=== PATIENT | male | born 1950 | race Caucasian/White ===

== ENCOUNTER 2016-12-16 14:15 | Inpatient (IN) | payer OTHER ==
[2016-12-16] VITALS (8 sets, daily range): BP systolic 103–139; BP diastolic 50–68
[~2016-12-16] VITALS: Ht 180.3 cm; Wt 150.1 kg
--- NOTE | 2016-12-16 14:54 | Emergency Room Report ---
History of Present Illness General Chief Complaint: Hypertension Source: Patient Present Illness HPI Patient is a 66-year-old male presented after increased difficulty breathing. Patient reported having hypotension at home. Patient is reportedly a type II diabetic. He stated that he took some glucose pills to raise his blood pressure. Patient prior history of heart failure and had been intermittently taking diuretics. Allergies: Coded Allergies: No Known Allergies (Unverified , 12/16/16) Patient History Past Medical History: old chart reviewed Reviewed Nursing Documentation: PMH: Agreed, PSxH: Agreed Nursing Documentation-PMH Past Medical History: No History, Except For Hx Cardiac Problems: Yes Hx Hypertension: Yes Hx Pacemaker: Yes Hx Diabetes: Yes Hx Cerebrovascular Accident: Yes Review of Systems All Other Systems: negative except mentioned in HPI Physical Exam Vital Signs Date Time Temp Pulse Resp B/P Pulse Ox O2 Delivery O2 Flow Rate FiO2 12/16/16 14:26 98.8 78 12 115/57 99 Room Air Sp02 EP Interpretation: reviewed, normal General Appearance: normal inspection, alert Head: atraumatic ENT: normal ENT inspection, hearing grossly normal, normal voice Neck: normal inspection, full range of motion, supple, no bony tend Respiratory: normal inspection, lungs clear, normal breath sounds, no respiratory distress, no retraction, no wheezing Cardiovascular #1: regular rate, rhythm, no edema Gastrointestinal: normal inspection, normal bowel sounds, non tender, soft, no guarding, no hernia Genitourinary: no CVA tenderness Musculoskeletal: normal inspection, back normal, normal range of motion Neurologic: normal inspection, alert, oriented x3, responsive, implementation coordinator III-XII nml as tested, speech normal Psychiatric: normal inspection, judgement/insight normal, mood/affect normal Skin: normal inspection, normal color, no rash Medical Decision Making Diagnostic Impression: Primary Impression: CHF (congestive heart failure) Additional Impressions: Urinary tract infection Acute renal insufficiency ER Course The patient is a 66-year-old male who presented after having increased generalized weakness. Differential diagnosis included was not limited to anemia , urinary tract infection, electrolyte abnormality, hypothyroidism, myocardial infarction, myasthenia gravis, dehydration, among others. Because of complexity of patient's case laboratory testing and imaging studies were ordered. EKG interpreted by me showed biventricular pacemaker rhythm. The patient was noted to have fever. This is likely due to patient's a urinary tract infection. Patient also was noted to have some acute renal insufficiency. The patient was discussed with Dr. Justen Singh for inpatient management due to the patient's recent hypotension febrile illness Labs Test 12/16/16 14:40 12/16/16 15:35 12/16/16 15:54 12/16/16 15:58 White Blood Count 9.4 K/UL (4.8-10.8) Red Blood Count 3.45 M/UL (4.70-6.10) Hemoglobin 10.8 G/DL (14.2-18.0) Hematocrit 33.0 % (42.0-52.0) Mean Corpuscular Volume 96 FL (80-99) Mean Corpuscular Hemoglobin 31.4 PG (27.0-31.0) Mean Corpuscular Hemoglobin Concent 32.9 G/DL (32.0-36.0) Red Cell Distribution Width 13.9 % (11.6-14.8) Platelet Count 145 K/UL (150-450) Mean Platelet Volume 8.6 FL (6.5-10.1) Neutrophils (%) (Auto) 80.2 % (45.0-75.0) Lymphocytes (%) (Auto) 7.1 % (20.0-45.0) Monocytes (%) (Auto) 10.2 % (1.0-10.0) Eosinophils (%) (Auto) 0.2 % (0.0-3.0) Basophils (%) (Auto) 2.3 % (0.0-2.0) Sodium Level 133 mEQ/L (135-145) Potassium Level 3.4 mEQ/L (3.4-4.9) Chloride Level 89 mEQ/L (98-107) Carbon Dioxide Level 26 mEQ/L (20-30) Anion Gap 18 (5-15) Blood Urea Nitrogen 70 mg/dL (7-23) Creatinine 2.5 mg/dL (0.7-1.2) Estimat Glomerular Filtration Rate 25.9 mL/min (>60) Glucose Level 142 mg/dL (74-106) Calcium Level 8.8 mg/dL (8.6-10.2) Total Bilirubin 1.0 mg/dL (0.0-1.2) Aspartate Amino Transf (AST/SGOT) 21 U/L (5-40) Alanine Aminotransferase (ALT/SGPT) 12 U/L (3-41) Alkaline Phosphatase 56 U/L (40-129) Total Creatine Kinase 420 U/L (38-174) Creatine Kinase MB 1.8 ng/mL (< 6.7) Creatine Kinase MB Relative Index 0.4 Pro-B-Type Natriuretic Peptide 6482 pg/mL (0-125) Total Protein 7.9 g/dL (6.6-8.7) Albumin 3.7 g/dL (3.5-5.2) Globulin 4.2 g/dL Albumin/Globulin Ratio 0.8 (1.0-2.7) Lipase 15 U/L (< 60) Lactic Acid Level 1.40 mmol/L (0.66-2.22) Urine Color Yellow Urine Appearance Slightly cloudy Urine pH 5 (4.5-8.0) Urine Specific [place] 1.010 (1.005-1.035) Urine Protein 1+ (NEGATIVE) Urine Glucose (UA) Negative (NEGATIVE) Urine Ketones Negative (NEGATIVE) Urine Occult Blood 1+ (NEGATIVE) Urine Nitrite Negative (NEGATIVE) Urine Bilirubin Negative (NEGATIVE) Urine Urobilinogen 1 MG/DL (0.0-1.0) Urine Leukocyte Esterase 3+ (NEGATIVE) Urine RBC 0-2 /HPF (0 - 0) Urine WBC Tntc /HPF (0 - 0) Urine Squamous Epithelial Cells None /LPF (NONE/OCC) Urine Bacteria Many /HPF (NONE) Prothrombin Time 16.9 SEC (9.30-11.50) Prothromb Time International Ratio 1.6 (0.9-1.1) Troponin I < 0.30 ng/mL (<=0.30) EKG Diagnostic Results Rate: normal Rhythm: other - paced rhythm Rhythm Strip Diag. Results EP Interpretation: yes Rhythm: NSR, no PVC's, no ectopy Last Vital Signs Date Time Temp Pulse Resp B/P Pulse Ox O2 Delivery O2 Flow Rate FiO2 12/16/16 14:47 75 22 125/50 97 Room Air 12/16/16 14:26 98.8 Status: unchanged Disposition: ADMITTED INPATIENT Condition: Serious Robert Dennis Dec 16, 2016 14:54
[2016-12-16 14:55] LABS: BASOPHILS % (AUTO) 2.3 % (0.0-2.0); EOSINOPHILS % (AUTO) 0.2 % (0.0-3.0); LYMPHOCYTES % (AUTO) 7.1 % (20.0-45.0); MEAN CORPUSCULAR HEMOGLOBIN 31.4 PG (27.0-31.0); MEAN CORPUSCULAR HGB CONC 32.9 G/DL (32.0-36.0); MEAN CORPUSCULAR VOLUME 96 FL (80-99); MEAN PLATELET VOLUME 8.6 FL (6.5-10.1); MONOCYTES % (AUTO) 10.2 % (1.0-10.0); NEUTROPHILS % (AUTO) 80.2 % (45.0-75.0); PLATELET COUNT 145 K/UL (150-450); RED BLOOD COUNT 3.45 M/UL (4.70-6.10); RED CELL DISTRIBUTION WIDTH 13.9 % (11.6-14.8); WHITE BLOOD COUNT 9.4 K/UL (4.8-10.8)
[2016-12-16 15:12] LABS: ALBUMIN/GLOBULIN RATIO 0.8 (1.0-2.7); CALCIUM 8.8 mg/dL (8.6-10.2); CREATININE 2.5 mg/dL (0.7-1.2); GLOMERULAR FILTRATION RATE 25.9 mL/min (>60); POTASSIUM 3.4 mEQ/L (3.4-4.9); TOTAL PROTEIN 7.9 g/dL (6.6-8.7); TROPONIN I < 0.30 ng/mL (<=0.30)
[2016-12-16 15:23] LABS: CKMB 1.8 ng/mL (< 6.7)
[2016-12-16] MEDS ORDERED: cefTRIAXone 1 GM in NS 55 ML IVPB ONE (16:45)
[2016-12-16] MEDS ORDERED: ALLOPURINOL100 M1 ORAL (17:17)
[2016-12-16] MEDS ORDERED: LOSARTAN POTASS25 MG ORAL (17:17)
[2016-12-16] MEDS ORDERED: CARVEDILOL25 MG ORAL (17:17)
[2016-12-16] MEDS ORDERED: CO Q-10100 M1 PO (17:17)
[2016-12-16] MEDS ORDERED: FUROSEMIDE20 M1 ORAL (17:17)
[2016-12-16 17:31] LABS: APPEARANCE,URINE SLIGHTLY CLOUDY; KETONES,URINE NEGATIVE (NEGATIVE); LEUKOCYTE ESTERASE ,URINE 3+ (NEGATIVE); NITRITE,URINE NEGATIVE (NEGATIVE); PH,URINE 5 (4.5-8.0); PROTEIN,URINE 1+ (NEGATIVE); UROBILINOGEN,URINE 1 MG/DL (0.0-1.0)
[2016-12-16 17:42] LABS: BACTERIA,URINE MANY /HPF; RBC,URINE 0-2 /HPF (0 - 0); WBC,URINE TNTC /HPF (0 - 0)
[2016-12-16] MEDS ORDERED: WARFARIN SODIUM5 MG ORAL ×2 (17:54)
[2016-12-16] MEDS ORDERED: COLCRYS0.6 M1 PO (17:56)
[2016-12-16] MEDS ORDERED: VITAMIN D400 INTLU ORAL (17:56)
[2016-12-16] MEDS ORDERED: OMEPRAZOLE40 M1 ORAL (17:56)
[2016-12-16] MEDS ORDERED: PRAVACHOL20 MG ORAL (17:58)
[2016-12-16] MEDS ORDERED: TORSEMIDE100 MG PO (17:58)
[2016-12-16] MEDS ORDERED: Milk of Magnesia 30ml Ud ORAL PRN (18:15)
[2016-12-16] MEDS ORDERED: Zolpidem 5mg tab ORAL PRN (18:15)
--- NOTE | 2016-12-16 18:29 | Cardiac Electrophysiology PN ---
Subjective Subjective [id number] HTN CHF BNP >5000 S/P Medtronic BIV ICD Atrial fib on Coreg and coumadin. Check INR ARF Bun 70/cr 2.5 NIDDM Obesity DW ER and Dr Singh Objective Last 24 Hour Vital Signs Date Time Temp Pulse Resp B/P Pulse Ox O2 Delivery O2 Flow Rate FiO2 12/16/16 18:04 99.2 72 13 108/57 98 Room Air 12/16/16 17:17 100.4 78 22 103/65 98 Room Air 12/16/16 17:11 100.4 12/16/16 16:00 100.4 75 22 123/54 100 Room Air 12/16/16 14:47 75 22 125/50 97 Room Air 12/16/16 14:46 75 20 12/16/16 14:26 98.8 78 12 115/57 99 Room Air LATHA DEY Dec 16, 2016 18:29
[2016-12-16 18:52] LABS: INR 1.6 (0.9-1.1); PROTHROMBIN TIME 16.9 SEC (9.30-11.50); TROPONIN I < 0.30 ng/mL (<=0.30)
[2016-12-16] MEDS ORDERED: Allopurinol 100mg Tab ORAL SCH (19:00)
[2016-12-16] MEDS ORDERED: Losartan 25mg tab ORAL SCH (19:00)
[2016-12-16] MEDS ORDERED: LANTUS SOL100 UNIT/1 SUBQ (19:39)
[2016-12-16] MEDS: Allopurinol 100mg Tab ORAL SCH (21:44)
[2016-12-16] MEDS: Carvedilol 25mg Tab ORAL SCH (21:45)
[2016-12-16] MEDS: Warfarin Sodium 5mg ORAL SCH (22:51)
--- NOTE | 2016-12-17 00:15 | Consultation ---
DATE OF CONSULTATION: 12/16/2016 CARDIOLOGY CONSULTATION REFERRING PHYSICIAN: Justen Singh M.D. REASON FOR CONSULTATION: Management of hypertension, congestive heart failure, atrial fibrillation as well as patient's defibrillator. HISTORY OF PRESENT ILLNESS: The patient is a 66-year-old gentleman with a history of hypertension, diabetes, and congestive heart failure, who also has a history of Medtronic biventricular defibrillator implantation. He had a recent generator change about a year ago in [place]. The patient came to the emergency room for his shortness of breath and difficulty breathing and reportedly have hypotension at home. The patient is a type 2 diabetic and took some glucose pills to raise his blood sugar. The patient also has been taking Coumadin for his atrial fibrillation. The patient was brought to the ER and was also found to have renal failure. Cardiology consultation was obtained for further evaluation and management. His BNP in the ER was more than 6000. PAST MEDICAL HISTORY: 1. Hypertension. 2. Diabetes. 3. Nonischemic cardiomyopathy and congestive heart failure. 4. History of Medtronic biventricular defibrillator implantation and defibrillator generator change. 5. History of cerebrovascular accident. FAMILY HISTORY: Noncontributory. SOCIAL HISTORY: He recently moved to [place] from [place]. He does not smoke or drink alcohol. REVIEW OF SYSTEMS: Review of systems was performed and was negative other than what was mentioned in the history of present illness. PHYSICAL EXAMINATION: VITAL SIGNS: Blood pressure 124/50, pulse is 75, respirations 20, and he is afebrile. HEAD AND NECK: Mild JVD. LUNGS: Decreased breath sounds. CARDIOVASCULAR: Regular S1 and S2 with no gallop or murmur. There is a defibrillator in the left subclavian. ABDOMEN: Soft. EXTREMITIES: There is 1+ pitting edema. LABORATORY AND DIAGNOSTIC DATA: His EKG showed atrial fibrillation, biventricularly paced with the bundle-branch block morphology in lead V1. His laboratory showed sodium 132, potassium 3.4, BUN of 70, creatinine 2.5, and glucose 142. His BNP is 6482. His lactic acid is 1.4. His CBC and INR is pending. ASSESSMENT AND PLAN: 1. Congestive heart failure with beta-natriuretic peptide of 6500. The patient also has renal failure and azotemic with BUN of 70 and creatinine of 2.5. Hold off on giving him Lasix until the patient is evaluated by Dr. Singh. Again, hold off on Aldactone as well for renal failure, risk of hyperkalemia, however, start the patient on Coreg 25 mg b.i.d. the patient is on at home. It is of note, the patient was also on losartan 25 mg daily and Lasix 20 mg daily. Add Demadex 50 mg daily. I will hold until the patient is evaluated by Dr. Singh. 2. Status post Medtronic biventricular defibrillator implantation. We will try to interrogate defibrillator for further evaluation. 3. Chronic atrial fibrillation. Rate is controlled on Coreg 25 mg b.i.d. and the patient is on Coumadin, we will check the INR. 4. Azotemia with BUN of 70 and creatinine of 2.5. Further evaluation with Dr. Amaya. The patient may need actually some intravenous fluids and hold on losartan and Lasix. 5. hyperlipidemia, on Pravachol. 6. Uncontrolled diabetes. Thank you very much Dr. Singh for allowing me to participate in the care of this patient. Please do not hesitate to contact me for any questions regarding my evaluation. Devin Ortega M.D. DR: RICARDO JOB#: [id number] CC:
[2016-12-17 07:07] LABS: INR 1.7 (0.9-1.1)
[2016-12-17 07:23] LABS: CALCIUM 8.4 mg/dL (8.6-10.2); CHOLESTEROL/HDL RATIO 2.9 (3.3-4.4); CREATININE 2.6 mg/dL (0.7-1.2); GLOMERULAR FILTRATION RATE 24.7 mL/min (>60); MAGNESIUM 2.6 mg/dL (1.7-2.5); POTASSIUM 3.3 mEQ/L (3.4-4.9)
[2016-12-17 07:28] LABS: TROPONIN I < 0.30 ng/mL (<=0.30)
[2016-12-17 07:40] LABS: THYROID STIMULATING HORMONE 1.48 uIU/mL (0.300-4.500)
[2016-12-17 08:31] VITALS: BP 104/62
[2016-12-17] MEDS: Carvedilol 25mg Tab ORAL SCH ×2 (09:00→21:00)
[2016-12-17] MEDS: Losartan 25mg tab ORAL SCH (09:00)
[2016-12-17] MEDS: Allopurinol 100mg Tab ORAL SCH (09:25)
--- NOTE | 2016-12-17 10:22 | Diagnostic Imaging Report ---
Indication: Shortness of breath Technique: XRAY CHEST 1 V Comparison: None Findings: Cardiac silhouette is prominent. There is a left chest pacemaker. Central pulmonary vascular congestion is noted. Degenerative changes of the spine are seen. Atherosclerotic changes are present. Impression: Cardiomegaly with central pulmonary vascular congestion.
--- NOTE | 2016-12-17 11:00 | History & Physical ---
History and Physical History & Physicial HP dictated # [id number] CHANDA MUNIZ Dec 17, 2016 11:00
[2016-12-17 11:41] VITALS: BP 102/59
[2016-12-17 15:39] VITALS: BP 119/63
[2016-12-17] MEDS: cefTRIAXone 1 GM in D5W 55 ML IVPB SCH (15:54)
[2016-12-17] MEDS: Warfarin Sodium 5mg ORAL SCH (18:09)
--- NOTE | 2016-12-17 18:23 | Cardiology Report ---
APPROVED REPORT EXAM: Two-dimensional and M-mode echocardiogram with Doppler and color Doppler. INDICATION Congestive Heart Failure M-Mode DIMENSIONS IVSd0.6 (0.7-1.1cm)Left Atrium (MM)5.2 (1.6-4.0cm) LVDd6.2 (3.5-5.6cm)Aortic Root3.1 (2.0-3.7cm) PWd0.9 (0.7-1.1cm)Aortic Cusp Exc.1.9 (1.5-2.0cm) LVDs4.2 (2.5-4.0cm) PWs1.2 cm Technically difficult study due to poor acoustic windows. Mild left ventricular enlargement. Global left ventricular hypokinesis. Thinning of the mid septal akinesis. Left ventricular ejection fraction estimated to be 30-35 %. No evidence of left ventricular hypertrophy. No evidence of pericardial fat or effusion. Severe bi-atrial enlargement by 2D. Focal aortic valve sclerosis with adequate cusp excursion Thickened mitral valve leaflets with normal excursion. Mitral annulus and aortic root calcification. Pulmonic valve not well visualized. Normal tricuspid valve structure. IVC is normal in size with physiological collapse. Probable pacemaker wire present in the right side chambers. A color flow and spectral Doppler study was performed and revealed: No aortic regurgitation. Mild mitral regurgitation. Left ventricular diastolic dysfunction grade 3. Trace tricuspid regurgitation. Tricuspid systolic velocities suggests peak right ventricular systolic pressure of 28 mmHg Pulmonic regurgitation present.
--- NOTE | 2016-12-17 20:30 | Consultation ---
DATE OF CONSULTATION: 12/17/2016 INFECTIOUS DISEASE CONSULT PRIMARY ATTENDING PHYSICIAN: Justen Singh M.D. REASON FOR CONSULTATION: UTI. HISTORY OF PRESENT ILLNESS: This is a 66-year-old male admitted yesterday because of shortness of breath. The patient was hypotensive at home, feels like blood sugar was low around 80s. The patient feels chills at home. In hospital, he has a low-grade fever of 100.4 degrees. PAST MEDICAL HISTORY: Significant for diabetes mellitus type 2 on insulin, congestive heart failure, morbid obesity, history of atrial fibrillation, status post defibrillator placement, and status post CVA. MEDICATIONS: Rocephin, Cozaar, potassium chloride, Coumadin, Lasix, carvedilol, ranitidine, pravastatin, allopurinol, magnesium hydroxide, and Ambien. ALLERGIES: No known drug allergies. SOCIAL HISTORY: Single. Alcohol, drug abuse, or smoking. Lives at home. REVIEW OF SYSTEMS: Fever in the hospital as mentioned. Chronic shortness of breath on exertion. He has urinary frequency, but he is not sure that is because of Lasix. The patient has decreased urine. PHYSICAL EXAMINATION: GENERAL APPEARANCE: No acute distress, seems to be obese. Awake, alert, and oriented x3. VITAL SIGNS: Temperature 97.2 degrees, pulse 71, and blood pressure 104/62. HEAD AND NECK: [place] conjunctivae. HEART: Normal rate with defibrillator on the left side. LUNGS: Clear. ABDOMEN: Soft and obese. EXTREMITIES: Have mild leg edema. LABORATORY DATA: WBC is 9.4, hemoglobin 10.8, hematocrit 33, and platelets 145,000. Sodium 136, potassium 2.3, chloride 98, bicarb 28, BUN 75, creatinine 2.6, glucose 151, and hemoglobin A1c 7. BNP is 6482. Chest x-ray showed cardiomegaly and some congestion. UA shows WBC too numerous to count, leukocyte esterase positive, nitrites negative. IMPRESSION: Urinary tract infection. The patient has low-grade fever. The patient has acute renal failure, diabetes mellitus type 2, congestive heart failure, chronic atrial fibrillation, and morbid obesity. RECOMMENDATION: We will continue with Rocephin. We will follow up the cultures. At the end of my exam, I thank Dr. Justen Singh, for involving me in the care of this patient. Graeme Sinhg M.D. DR: PÉREZ JOB#: [id number] CC:
[2016-12-17] MEDS: NovoLOG Insulin Flexpen SUBQ SCH (22:08)
--- NOTE | 2016-12-17 22:30 | History and Physical Report ---
DATE OF ADMISSION: 12/16/2016 CHIEF COMPLAINT: Shakiness and some shortness of breath after having high blood pressure at sister's home. HISTORY OF PRESENT ILLNESS: This is a 66-year-old male with history of congestive heart failure. He is status post Medtronic biventricular defibrillator implantation. He was in his sister's house yesterday and he was feeling shaky. He checked his blood sugar which was in the 80s. He took some glucose tablets; however, even after his blood sugar came up, he was still feeling shaky and then he also became short of breath. He checked his blood pressure which was also high. He came to the emergency room. The patient was admitted. He was also found to have urinary tract infection. PAST MEDICAL HISTORY: Includes history of hypertension, diabetes, cardiomyopathy, and history of ICD. MEDICATIONS: Reviewed in the EMR. ALLERGIES: No known drug allergies. SOCIAL HISTORY: No history of smoking or alcohol abuse. The patient just moved to [place] from [place]. REVIEW OF SYSTEMS: As above. PHYSICAL EXAMINATION: GENERAL: The patient is a pleasant male, in no acute distress. VITAL SIGNS: Blood pressure 104/62, pulse 71, temperature 97.2 degrees, and respiratory rate 18. HEENT: [place] conjunctivae. Anicteric sclerae. NECK: Supple. LUNGS: Clear to auscultation. HEART: S1 and S2 without murmurs or rubs. ABDOMEN: Soft and nontender. EXTREMITIES: Bilateral pedal edema. LABORATORY FINDINGS: The UA shows 1+ protein and too numerous to count WBCs per high-powered field. CBC shows WBC of 9.4, hematocrit 33, hemoglobin 10.8, and platelets 145,000. Chemistry panel shows serum sodium 136, potassium 3.3, chloride 93, CO2 28, BUN 75, and creatinine 2.6. Magnesium 2.6. Troponin was negative. Hemoglobin A1c was 7. ASSESSMENT: This is a 66-year-old male, who is admitted with shakiness that appears to be as a result of hypoglycemia; however, even after his blood sugar came back to normal, he still felt the symptoms. He does have urinary tract infection. He has history of congestive heart failure, but he looks comfortable right now on room air. Nevertheless, he has also significant peripheral edema. PLAN: The patient will be on IV antibiotics. I started the patient on IV Lasix for diuresis. The patient will be followed by Dr. Ortega in cardiology consultation. Echocardiogram will be done. The patient's blood sugar will be followed and adjustment will be made in the patient's regimen. The patient has also renal failure with unknown baseline and likely the patient has some CKD as well. Renal ultrasound will be ordered to make sure that the patient does not have any obstruction. Justen Singh M.D. DR: KANDI JOB#: [id number] CC:
[2016-12-18] MEDS: NovoLOG Insulin Flexpen SUBQ SCH ×4 (06:20→21:52)
[2016-12-18 06:33] VITALS: BP 117/73
[2016-12-18 08:00] VITALS: BP 117/74
[2016-12-18 09:08] LABS: INR 1.7 (0.9-1.1)
[2016-12-18 09:18] LABS: CALCIUM 8.7 mg/dL (8.6-10.2); CREATININE 2.4 mg/dL (0.7-1.2); GLOMERULAR FILTRATION RATE 27.1 mL/min (>60); POTASSIUM 3.6 mEQ/L (3.4-4.9)
[2016-12-18] MEDS: Allopurinol 100mg Tab ORAL SCH (09:52)
[2016-12-18] MEDS: Carvedilol 25mg Tab ORAL SCH ×2 (09:52→21:49)
[2016-12-18] MEDS: Losartan 25mg tab ORAL SCH (09:52)
[2016-12-18] MEDS ORDERED: NS 275ml ONE (10:33)
[2016-12-18] MEDS ORDERED: Tubing IV Secondary IV ONE (10:33)
--- NOTE | 2016-12-18 11:59 | Infectious Diseases Prog Note ---
Assessment/Plan Assessment/Plan A; UTI Systolic CHF, EF=30-35% CKD, acute renal failure DM type 2 Morbid obesity P: continue Rocephin Will f/u cultures Subjective ROS Limited/Unobtainable: No Respiratory: Reports: no symptoms Cardiovascular: Reports: no symptoms Gastrointestinal/Abdominal: Reports: no symptoms Genitourinary: Reports: no symptoms Allergies: Coded Allergies: No Known Allergies (Unverified , 12/16/16) Objective Vital Signs Last 24 Hour Vital Signs Date Time Temp Pulse Resp B/P Pulse Ox O2 Delivery O2 Flow Rate FiO2 12/18/16 11:13 71 12/18/16 09:52 117/74 12/18/16 09:52 67 117/74 12/18/16 08:00 97.3 67 18 117/74 98 Room Air 12/18/16 06:33 97.0 73 20 117/73 99 Room Air 12/18/16 04:02 72 12/17/16 23:48 73 12/17/16 21:00 76 111/60 12/17/16 20:39 71 12/17/16 16:00 71 12/17/16 15:39 97.5 71 18 119/63 97 Room Air 12/17/16 12:00 80 Height (Feet): 5 Height (Inches): 11.00 Weight (Pounds): 300 General Appearance: no acute distress HEENT: mucous membranes moist Respiratory/Chest: normal breath sounds Cardiovascular: normal rate Abdomen: soft, non tender Extremities: other - edema Neurologic/Psychiatric: alert, oriented x 3, responsive Microbiology Date/Time Source Procedure Growth Status 12/16/16 15:45 Blood Blood Culture - Preliminary NO GROWTH AFTER 24 HOURS Resulted 12/16/16 15:35 Blood Blood Culture - Preliminary NO GROWTH AFTER 24 HOURS Resulted 12/16/16 15:54 Urine,Clean Catch Urine Culture - Preliminary Gram Negative Bacillus 1 Resulted Laboratory Tests Test 12/18/16 08:40 Prothrombin Time 18.0 SEC (9.30-11.50) H Prothromb Time International Ratio 1.7 (0.9-1.1) H Sodium Level 132 mEQ/L (135-145) L Potassium Level 3.6 mEQ/L (3.4-4.9) Chloride Level 93 mEQ/L (98-107) L Carbon Dioxide Level 27 mEQ/L (20-30) Anion Gap 12 (5-15) Blood Urea Nitrogen 75 mg/dL (7-23) H Creatinine 2.4 mg/dL (0.7-1.2) H Estimat Glomerular Filtration Rate 27.1 mL/min (>60) Glucose Level 206 mg/dL (74-106) H Calcium Level 8.7 mg/dL (8.6-10.2) Current Medications Medications (Trade) Dose Ordered Sig/Jordan Route PRN Reason Start Time Stop Time Status Last Admin Dose Admin Allopurinol 100 mg 100 mg DAILY ORAL 12/16/16 21:00 01/15/17 20:59 12/18/16 09:52 Carvedilol (Coreg) 25 mg EVERY 12 HOURS ORAL 12/16/16 21:00 01/15/17 20:59 12/18/16 09:52 Ceftriaxone Sodium/Dextrose (Rocephin/D5W) 55 ml @ 110 mls/hr Q24H IVPB 12/17/16 16:00 12/24/16 15:59 12/17/16 15:54 Dextrose (Dextrose 50%) STAT PRN IV Hypoglycemia 12/16/16 18:15 01/15/17 18:14 Furosemide (Lasix) 40 mg Q12HR IV 12/16/16 21:00 01/15/17 20:59 12/18/16 09:52 Insulin Aspart (NovoLOG) BEFORE MEALS AND HS SUBQ 12/17/16 22:30 01/16/17 22:29 12/18/16 06:20 Losartan Potassium (Cozaar) 25 mg DAILY ORAL 12/17/16 09:00 01/16/17 08:59 12/18/16 09:52 Magnesium Hydroxide (Mom) 30 ml HSPRN PRN ORAL Constipation 12/16/16 18:15 01/15/17 18:14 Pravastatin Sodium (Pravachol) 10 mg BEDTIME ORAL 12/16/16 21:00 01/15/17 20:59 12/17/16 21:39 Ranitidine HCl (Zantac) 150 mg Q12HR ORAL 12/16/16 21:00 01/15/17 20:59 12/18/16 09:53 Warfarin Sodium (Coumadin per pharmacy) 1 ea DAILY PRN MISC Per rx protocol 12/16/16 18:15 01/15/17 18:14 Warfarin Sodium (Coumadin) 5 mg COUMADIN ORAL 12/16/16 22:00 12/21/16 21:59 12/17/16 18:09 Zolpidem Tartrate (Ambien) 5 mg DAILYPRN PRN ORAL Insomnia 12/16/16 18:15 01/15/17 18:14 NINO MUNIZ Dec 18, 2016 11:59
--- NOTE | 2016-12-18 12:20 | General Progress Note ---
Assessment/Plan Problem List: (1) Urinary tract infection ICD Codes: N39.0 - Urinary tract infection, site not specified SNOMED: 41861435 (2) Acute renal insufficiency ICD Codes: N28.9 - Disorder of kidney and ureter, unspecified SNOMED: 103424903 (3) CHF (congestive heart failure) ICD Codes: I50.9 - Heart failure, unspecified SNOMED: 54875641 Assessment/Plan cont with diuretics laxatives check Echo follow labs Discussed with RN Subjective Allergies: Coded Allergies: No Known Allergies (Unverified , 12/16/16) Subjective C/O constipation Objective Last 24 Hour Vital Signs Date Time Temp Pulse Resp B/P Pulse Ox O2 Delivery O2 Flow Rate FiO2 12/18/16 11:13 71 12/18/16 09:52 117/74 12/18/16 09:52 67 117/74 12/18/16 08:00 97.3 67 18 117/74 98 Room Air 12/18/16 06:33 97.0 73 20 117/73 99 Room Air 12/18/16 04:02 72 12/17/16 23:48 73 12/17/16 21:00 76 111/60 12/17/16 20:39 71 12/17/16 16:00 71 12/17/16 15:39 97.5 71 18 119/63 97 Room Air Intake and Output 12/17/16 12/18/16 19:00 07:00 Intake Total 655 ml Output Total 750 ml 300 ml Balance -95 ml -300 ml Intake Oral 600 ml IV Total 55 ml Output Urine Total 750 ml 300 ml # Voids 1 3 Laboratory Tests 12/18/16 08:40: Prothrombin Time 18.0H, Prothromb Time International Ratio 1.7H, Sodium Level 132L, Potassium Level 3.6, Chloride Level 93L, Carbon Dioxide Level 27, Anion Gap 12, Blood Urea Nitrogen 75H, Creatinine 2.4H, Estimat Glomerular Filtration Rate 27.1, Glucose Level 206H, Calcium Level 8.7 Height (Feet): 5 Height (Inches): 11.00 Weight (Pounds): 300 Cardiovascular: normal rate Respiratory/Chest: lungs clear Edema: 2+ Generalized CHANDA MUNIZ Dec 18, 2016 12:20
[2016-12-18] MEDS ORDERED: Sorbitol Solution UD 30ml ORAL PRN (12:30)
[2016-12-18 13:14] VITALS: BP 110/70
--- NOTE | 2016-12-18 14:25 | Cardiac Electrophysiology PN ---
Assessment/Plan Status Narrative Technically difficult study due to poor acoustic windows. Mild left ventricular enlargement. Global left ventricular hypokinesis. Thinning of the mid septal akinesis. Left ventricular ejection fraction estimated to be 30-35 %. No evidence of left ventricular hypertrophy. No evidence of pericardial fat or effusion. Severe bi-atrial enlargement by 2D. Focal aortic valve sclerosis with adequate cusp excursion Thickened mitral valve leaflets with normal excursion. Mitral annulus and aortic root calcification. Pulmonic valve not well visualized. Normal tricuspid valve structure. IVC is normal in size with physiological collapse. Probable pacemaker wire present in the right side chambers. Assessment/Plan 1. Congestive heart failure with beta-natriuretic peptide of 6500 and EF 30%. Continue Coreg 25 mg b.i.d., losartan 25 and Lasix 40 iv bid. 2. Status post Medtronic biventricular defibrillator implantation. We will try to interrogate defibrillator for further evaluation. 3. Chronic atrial fibrillation. Rate is controlled on Coreg 25 mg b.i.d. and Coumadin per Rx INR is 1.7 4. Azotemia with BUN of 70 and creatinine of 2.5. Further evaluation with Dr. Amaya. 5. hyperlipidemia, on Pravachol. 6. Uncontrolled diabetes. DW RN Subjective Subjective Remained in atrial fib with controlled rate. Diuresing well. Objective Last 24 Hour Vital Signs Date Time Temp Pulse Resp B/P Pulse Ox O2 Delivery O2 Flow Rate FiO2 12/18/16 13:14 97.3 71 18 110/70 97 Room Air 12/18/16 12:00 85 12/18/16 11:13 71 12/18/16 09:52 117/74 12/18/16 09:52 67 117/74 12/18/16 08:00 97.3 67 18 117/74 98 Room Air 12/18/16 06:33 97.0 73 20 117/73 99 Room Air 12/18/16 04:02 72 12/17/16 23:48 73 12/17/16 21:00 76 111/60 12/17/16 20:39 71 12/17/16 16:00 71 12/17/16 15:39 97.5 71 18 119/63 97 Room Air Intake and Output 12/17/16 12/18/16 19:00 07:00 Intake Total 655 ml Output Total 750 ml 300 ml Balance -95 ml -300 ml Intake Oral 600 ml IV Total 55 ml Output Urine Total 750 ml 300 ml # Voids 1 3 Laboratory Tests Test 12/18/16 08:40 Prothrombin Time 18.0 SEC (9.30-11.50) H Prothromb Time International Ratio 1.7 (0.9-1.1) H Sodium Level 132 mEQ/L (135-145) L Potassium Level 3.6 mEQ/L (3.4-4.9) Chloride Level 93 mEQ/L (98-107) L Carbon Dioxide Level 27 mEQ/L (20-30) Anion Gap 12 (5-15) Blood Urea Nitrogen 75 mg/dL (7-23) H Creatinine 2.4 mg/dL (0.7-1.2) H Estimat Glomerular Filtration Rate 27.1 mL/min (>60) Glucose Level 206 mg/dL (74-106) H Calcium Level 8.7 mg/dL (8.6-10.2) Microbiology Date/Time Source Procedure Growth Status 12/16/16 15:45 Blood Blood Culture - Preliminary NO GROWTH AFTER 24 HOURS Resulted 12/16/16 15:35 Blood Blood Culture - Preliminary NO GROWTH AFTER 24 HOURS Resulted 12/16/16 15:54 Urine,Clean Catch Urine Culture - Preliminary Gram Negative Bacillus 1 Resulted Objective HEAD AND NECK: No JVD. LUNGS: Decreased breath sounds. CARDIOVASCULAR: Regular S1 and S2 with no gallop or murmur and defibrillator in the left subclavian. ABDOMEN: Soft. EXTREMITIES: There is 1+ pitting edema. LATHA DEY Dec 18, 2016 14:25
[2016-12-18 16:07] VITALS: BP 114/66
[2016-12-18] MEDS: Warfarin Sodium 5mg ORAL SCH (16:40)
[2016-12-18] MEDS: cefTRIAXone 1 GM in D5W 55 ML IVPB SCH (16:42)
[2016-12-18 18:23] LABS: TROPONIN I < 0.30 ng/mL (<=0.30)
[2016-12-18 20:00] VITALS: BP 122/62
[2016-12-19] VITALS: BP 109/68
[2016-12-19 04:28] VITALS: BP 98/60
[2016-12-19] MEDS: NovoLOG Insulin Flexpen SUBQ SCH ×4 (06:30→21:41)
[2016-12-19 08:16] LABS: INR 1.7 (0.9-1.1); PROTHROMBIN TIME 18.1 SEC (9.30-11.50)
[2016-12-19 08:29] VITALS: BP 103/67
[2016-12-19] MEDS: Carvedilol 25mg Tab ORAL SCH ×2 (09:00→21:50)
[2016-12-19] MEDS: Losartan 25mg tab ORAL SCH (09:00)
[2016-12-19] MEDS: Allopurinol 100mg Tab ORAL SCH (09:01)
[2016-12-19 12:00] VITALS: BP 109/70
--- NOTE | 2016-12-19 12:07 | Infectious Diseases Prog Note ---
Assessment/Plan Assessment/Plan antibiotics : ceftriaxone A 1. e.coli UTI 2. CHF 3. DM 4. renal failure improving P 1. continue ceftriaxone 2. will follow up cultures Subjective Constitutional: Denies: chills, fever Respiratory: Denies: dry cough, shortness of breath Gastrointestinal/Abdominal: Reports: constipation, Denies: diarrhea, nausea, vomiting Musculoskeletal: Denies: pain Allergies: Coded Allergies: No Known Allergies (Unverified , 12/16/16) Objective Vital Signs Last 24 Hour Vital Signs Date Time Temp Pulse Resp B/P Pulse Ox O2 Delivery O2 Flow Rate FiO2 12/19/16 12:00 97.7 70 18 109/70 99 Room Air 12/19/16 09:00 103/67 12/19/16 09:00 73 103/67 12/19/16 08:29 97.5 73 18 103/67 98 Room Air 12/19/16 04:28 97.3 71 20 98/60 97 Room Air 12/19/16 04:00 71 12/19/16 02:00 70 12/19/16 00:00 97.2 74 18 109/68 99 Room Air 12/18/16 21:49 75 114/66 12/18/16 20:00 87 12/18/16 20:00 97.0 75 18 122/62 98 Room Air 12/18/16 16:07 97.6 72 18 114/66 97 Room Air 12/18/16 16:00 71 12/18/16 13:14 97.3 71 18 110/70 97 Room Air Height (Feet): 5 Height (Inches): 11.00 Weight (Pounds): 300 Respiratory/Chest: lungs clear Cardiovascular: normal rate, regular rhythm, no gallop/murmur Abdomen: soft, non tender Extremities: other - + edema bilaterally Microbiology Date/Time Source Procedure Growth Status 12/16/16 15:45 Blood Blood Culture - Preliminary NO GROWTH AFTER 48 HOURS Resulted 12/16/16 15:35 Blood Blood Culture - Preliminary NO GROWTH AFTER 48 HOURS Resulted 12/16/16 15:54 Urine,Clean Catch Urine Culture - Final Escherichia Coli Complete Laboratory Tests Test 12/18/16 17:55 12/19/16 07:20 Troponin I < 0.30 ng/mL (<=0.30) Prothrombin Time 18.1 SEC (9.30-11.50) H Prothromb Time International Ratio 1.7 (0.9-1.1) H ROGER PEREZ Dec 19, 2016 12:07
--- NOTE | 2016-12-19 13:36 | Diagnostic Imaging Report ---
Indications: Acute renal failure Technique: Transabdominal real-time grayscale and duplex Doppler imaging of the kidneys, retroperitoneum, and urinary bladder was performed Findings: Comparison: None Right kidney measures 11.6 cm in length. Normal contour, echotexture, cortical thickness. No stones, other focal lesions, hydronephrosis, or obvious perinephric abnormalities. Left kidney measures 12 cm in length. Normal contour, echotexture, cortical thickness. No stones, other focal lesions, hydronephrosis, or obvious perinephric abnormalities. The intrahepatic portion of inferior vena cava is patent and normal caliber. The urinary bladder is distended without obvious abnormality. IMPRESSION: Negative retroperitoneal ultrasound--sonographically unremarkable kidneys
[2016-12-19] MEDS: cefTRIAXone 1 GM in D5W 55 ML IVPB SCH (15:25)
--- NOTE | 2016-12-19 15:27 | Cardiac Electrophysiology PN ---
Assessment/Plan Status Narrative Technically difficult study due to poor acoustic windows. Mild left ventricular enlargement. Global left ventricular hypokinesis. Thinning of the mid septal akinesis. Left ventricular ejection fraction estimated to be 30-35 %. No evidence of left ventricular hypertrophy. No evidence of pericardial fat or effusion. Severe bi-atrial enlargement by 2D. Focal aortic valve sclerosis with adequate cusp excursion Thickened mitral valve leaflets with normal excursion. Mitral annulus and aortic root calcification. Pulmonic valve not well visualized. Normal tricuspid valve structure. IVC is normal in size with physiological collapse. Probable pacemaker wire present in the right side chambers. Assessment/Plan 1. Congestive heart failure with beta-natriuretic peptide of 6500 and EF 30%. Continue Coreg 25 mg b.i.d., losartan 25 and change Lasix to 40 po daily 2. Status post Medtronic biventricular defibrillator implantation. Awaiting interrogation today. 3. Chronic atrial fibrillation. Rate is controlled on Coreg 25 mg b.i.d. and Coumadin per Rx INR today still is 1.7 4. Azotemia with BUN of 70 and creatinine of 2.5. Change IV lasix to po. Further evaluation with Dr. Amaya. 5. hyperlipidemia, on Pravachol. 6. Uncontrolled diabetes. COLTON RN and Dr Singh. Subjective Subjective Remained in atrial fib with controlled rate and occasional V pacing. No chest pain or SOB.. Objective Last 24 Hour Vital Signs Date Time Temp Pulse Resp B/P Pulse Ox O2 Delivery O2 Flow Rate FiO2 12/19/16 12:00 97.7 70 18 109/70 99 Room Air 12/19/16 12:00 70 12/19/16 09:00 103/67 12/19/16 09:00 73 103/67 12/19/16 08:29 97.5 73 18 103/67 98 Room Air 12/19/16 08:00 74 12/19/16 04:28 97.3 71 20 98/60 97 Room Air 12/19/16 04:00 71 12/19/16 02:00 70 12/19/16 00:00 97.2 74 18 109/68 99 Room Air 12/18/16 21:49 75 114/66 12/18/16 20:00 87 12/18/16 20:00 97.0 75 18 122/62 98 Room Air 12/18/16 16:07 97.6 72 18 114/66 97 Room Air 12/18/16 16:00 71 Intake and Output 12/18/16 12/19/16 19:00 07:00 Intake Total 180 ml Output Total 850 ml 1200 ml Balance -850 ml -1020 ml Intake Oral 180 ml Output Urine Total 850 ml 1200 ml # Voids 2 Laboratory Tests Test 12/18/16 17:55 12/19/16 07:20 Troponin I < 0.30 ng/mL (<=0.30) Prothrombin Time 18.1 SEC (9.30-11.50) H Prothromb Time International Ratio 1.7 (0.9-1.1) H Microbiology Date/Time Source Procedure Growth Status 12/16/16 15:45 Blood Blood Culture - Preliminary NO GROWTH AFTER 48 HOURS Resulted 12/16/16 15:35 Blood Blood Culture - Preliminary NO GROWTH AFTER 48 HOURS Resulted 12/16/16 15:54 Urine,Clean Catch Urine Culture - Final Escherichia Coli Complete Objective HEAD AND NECK: No JVD. LUNGS: Decreased breath sounds. CARDIOVASCULAR: Regular S1 and S2 with no gallop or murmur and defibrillator in the left subclavian. ABDOMEN: Soft. EXTREMITIES: 1+ pitting edema. LATHA DEY Dec 19, 2016 15:27
--- NOTE | 2016-12-19 15:56 | General Progress Note ---
Assessment/Plan Problem List: (1) Urinary tract infection ICD Codes: N39.0 - Urinary tract infection, site not specified SNOMED: 47678812 (2) Acute renal insufficiency ICD Codes: N28.9 - Disorder of kidney and ureter, unspecified SNOMED: 859932230 (3) CHF (congestive heart failure) ICD Codes: I50.9 - Heart failure, unspecified SNOMED: 44213306 Assessment/Plan change to po Lasix follow labs Discussed with Dr Ortega Subjective Allergies: Coded Allergies: No Known Allergies (Unverified , 12/16/16) Subjective feels better Objective Last 24 Hour Vital Signs Date Time Temp Pulse Resp B/P Pulse Ox O2 Delivery O2 Flow Rate FiO2 12/19/16 12:00 97.7 70 18 109/70 99 Room Air 12/19/16 12:00 70 12/19/16 09:00 103/67 12/19/16 09:00 73 103/67 12/19/16 08:29 97.5 73 18 103/67 98 Room Air 12/19/16 08:00 74 12/19/16 04:28 97.3 71 20 98/60 97 Room Air 12/19/16 04:00 71 12/19/16 02:00 70 12/19/16 00:00 97.2 74 18 109/68 99 Room Air 12/18/16 21:49 75 114/66 12/18/16 20:00 87 12/18/16 20:00 97.0 75 18 122/62 98 Room Air 12/18/16 16:07 97.6 72 18 114/66 97 Room Air 12/18/16 16:00 71 Intake and Output 12/18/16 12/19/16 19:00 07:00 Intake Total 180 ml Output Total 850 ml 1200 ml Balance -850 ml -1020 ml Intake Oral 180 ml Output Urine Total 850 ml 1200 ml # Voids 2 Laboratory Tests 12/18/16 17:55: Troponin I < 0.30 12/19/16 07:20: Prothrombin Time 18.1H, Prothromb Time International Ratio 1.7H Height (Feet): 5 Height (Inches): 11.00 Weight (Pounds): 300 Cardiovascular: normal rate Respiratory/Chest: lungs clear Edema: no edema noted CHANDA Pelaez Dec 19, 2016 15:56
[2016-12-19 16:06] VITALS: BP_SYST 109; BP_DIAS 1; BP_DIAS 71
[2016-12-19] MEDS ORDERED: Warfarin Sodium 7.5mg ORAL ONE (17:00)
[2016-12-19 20:00] VITALS: BP 107/61
[2016-12-20] VITALS: BP 117/74
[2016-12-20 04:00] VITALS: BP 113/79
[2016-12-20] MEDS: NovoLOG Insulin Flexpen SUBQ SCH ×4 (06:03→21:16)
[2016-12-20 07:56] LABS: INR 1.8 (0.9-1.1); PROTHROMBIN TIME 19.2 SEC (9.30-11.50)
[2016-12-20 08:55] VITALS: BP 107/73
[2016-12-20] MEDS: Carvedilol 25mg Tab ORAL SCH ×2 (09:42→21:13)
[2016-12-20] MEDS: Allopurinol 100mg Tab ORAL SCH (09:43)
[2016-12-20] MEDS: Losartan 25mg tab ORAL SCH (09:43)
[2016-12-20] MEDS: Furosemide 40mg tab ORAL SCH (09:44)
--- NOTE | 2016-12-20 10:45 | Infectious Diseases Prog Note ---
Assessment/Plan Assessment/Plan antibiotics : ceftriaxone A 1. e.coli UTI 2. CHF 3. DM 4. renal failure improving P 1. continue ceftriaxone 2. will follow up cultures Subjective Constitutional: Denies: chills, fever Respiratory: Reports: shortness of breath, Denies: dry cough Gastrointestinal/Abdominal: Denies: diarrhea, nausea, vomiting Musculoskeletal: Denies: pain Allergies: Coded Allergies: No Known Allergies (Unverified , 12/16/16) Objective Vital Signs Last 24 Hour Vital Signs Date Time Temp Pulse Resp B/P Pulse Ox O2 Delivery O2 Flow Rate FiO2 12/20/16 09:43 107/73 12/20/16 09:42 71 107/73 12/20/16 08:55 97.3 71 18 107/73 99 Room Air 12/20/16 07:45 73 12/20/16 04:00 97.2 73 20 113/79 97 Room Air 12/20/16 04:00 73 12/20/16 00:00 97.7 78 20 117/74 97 Room Air 12/20/16 00:00 77 12/19/16 21:50 72 107/69 12/19/16 20:00 72 12/19/16 20:00 97.7 71 20 107/61 96 Room Air 12/19/16 16:06 97.2 71 18 109/71 99 Room Air 12/19/16 16:00 73 12/19/16 12:00 97.7 70 18 109/70 99 Room Air 12/19/16 12:00 70 Height (Feet): 5 Height (Inches): 11.00 Weight (Pounds): 300 Respiratory/Chest: lungs clear Cardiovascular: normal rate, regular rhythm, no gallop/murmur Abdomen: soft, non tender Extremities: other - + edema Laboratory Tests Test 12/20/16 06:00 Prothrombin Time 19.2 SEC (9.30-11.50) H Prothromb Time International Ratio 1.8 (0.9-1.1) H ROGER PEREZ Dec 20, 2016 10:45
--- NOTE | 2016-12-20 11:36 | General Progress Note ---
Assessment/Plan Problem List: (1) Urinary tract infection ICD Codes: N39.0 - Urinary tract infection, site not specified SNOMED: 99904696 (2) Acute renal insufficiency ICD Codes: N28.9 - Disorder of kidney and ureter, unspecified SNOMED: 731265153 (3) CHF (congestive heart failure) ICD Codes: I50.9 - Heart failure, unspecified SNOMED: 90615728 Status Narrative UTI with E coli Assessment/Plan Increase lasix ? Lasix abxs DC tomorrow if ok with cardiology Subjective Allergies: Coded Allergies: No Known Allergies (Unverified , 12/16/16) Subjective feels better Objective Last 24 Hour Vital Signs Date Time Temp Pulse Resp B/P Pulse Ox O2 Delivery O2 Flow Rate FiO2 12/20/16 09:43 107/73 12/20/16 09:42 71 107/73 12/20/16 08:55 97.3 71 18 107/73 99 Room Air 12/20/16 07:45 73 12/20/16 04:00 97.2 73 20 113/79 97 Room Air 12/20/16 04:00 73 12/20/16 00:00 97.7 78 20 117/74 97 Room Air 12/20/16 00:00 77 12/19/16 21:50 72 107/69 12/19/16 20:00 72 12/19/16 20:00 97.7 71 20 107/61 96 Room Air 12/19/16 16:06 97.2 71 18 109/71 99 Room Air 12/19/16 16:00 73 12/19/16 12:00 97.7 70 18 109/70 99 Room Air 12/19/16 12:00 70 Intake and Output 12/19/16 12/20/16 19:00 07:00 Intake Total 1320 ml 300 ml Balance 1320 ml 300 ml Intake Oral 1320 ml 300 ml # Voids 5 Laboratory Tests 12/20/16 06:00: Prothrombin Time 19.2H, Prothromb Time International Ratio 1.8H Height (Feet): 5 Height (Inches): 11.00 Weight (Pounds): 300 Cardiovascular: normal rate Respiratory/Chest: lungs clear Edema: 2+ Generalized CHANDA MUNIZ Dec 20, 2016 11:36
[2016-12-20 11:47] VITALS: BP 121/75
--- NOTE | 2016-12-20 12:27 | Cardiac Electrophysiology PN ---
Assessment/Plan Status Narrative Technically difficult study due to poor acoustic windows. Mild left ventricular enlargement. Global left ventricular hypokinesis. Thinning of the mid septal akinesis. Left ventricular ejection fraction estimated to be 30-35 %. No evidence of left ventricular hypertrophy. No evidence of pericardial fat or effusion. Severe bi-atrial enlargement by 2D. Focal aortic valve sclerosis with adequate cusp excursion Thickened mitral valve leaflets with normal excursion. Mitral annulus and aortic root calcification. Pulmonic valve not well visualized. Normal tricuspid valve structure. IVC is normal in size with physiological collapse. Probable pacemaker wire present in the right side chambers. Assessment/Plan 1. Congestive heart failure with beta-natriuretic peptide of 6500 and EF 30%. Continue Coreg 25 mg b.i.d., losartan 25 and Lasix 40 po daily 2. Status post Medtronic biventricular defibrillator implantation. Nl F. High LV thresold by interrogation that was adjusted. 3. Chronic atrial fibrillation. Rate is controlled on Coreg 25 mg b.i.d. and Coumadin per Rx INR today is 1.8 4. Azotemia with BUN of 70 and creatinine of 2.5.On lasix po. Further evaluation with Dr. Amaya. 5. hyperlipidemia, on Pravachol. 6. Uncontrolled diabetes. COLTON RN and Dr Singh. OK to DC from cardiac standpoint. Subjective Subjective Atrial fib rate controlled. His BIV ICD was interrogated and showed high LV threshold and out put was adjusted. No chest pain or SOB.. Objective Last 24 Hour Vital Signs Date Time Temp Pulse Resp B/P Pulse Ox O2 Delivery O2 Flow Rate FiO2 12/20/16 11:47 97.7 70 18 121/75 100 Room Air 12/20/16 09:43 107/73 12/20/16 09:42 71 107/73 12/20/16 08:55 97.3 71 18 107/73 99 Room Air 12/20/16 07:45 73 12/20/16 04:00 97.2 73 20 113/79 97 Room Air 12/20/16 04:00 73 12/20/16 00:00 97.7 78 20 117/74 97 Room Air 12/20/16 00:00 77 12/19/16 21:50 72 107/69 12/19/16 20:00 72 12/19/16 20:00 97.7 71 20 107/61 96 Room Air 12/19/16 16:06 97.2 71 18 109/71 99 Room Air 12/19/16 16:00 73 Intake and Output 12/19/16 12/20/16 19:00 07:00 Intake Total 1320 ml 300 ml Balance 1320 ml 300 ml Intake Oral 1320 ml 300 ml # Voids 5 Laboratory Tests Test 12/20/16 06:00 Prothrombin Time 19.2 SEC (9.30-11.50) H Prothromb Time International Ratio 1.8 (0.9-1.1) H Objective HEAD AND NECK: No JVD. LUNGS: Decreased breath sounds. CARDIOVASCULAR: Regular S1 and S2 with no gallop or murmur and defibrillator in the left subclavian. ABDOMEN: Soft. EXTREMITIES: 1+ pitting edema. LATHA DEY Dec 20, 2016 12:27
[2016-12-20 16:12] VITALS: BP 104/68
[2016-12-20] MEDS: cefTRIAXone 1 GM in D5W 55 ML IVPB SCH (16:34)
[2016-12-20] MEDS ORDERED: Warfarin Sodium 7.5mg ORAL ONE (17:00)
[2016-12-20 20:00] VITALS: BP 108/89
[2016-12-21] VITALS: BP 112/65
[2016-12-21 04:00] VITALS: BP 107/71
[2016-12-21] MEDS: NovoLOG Insulin Flexpen SUBQ SCH ×2 (06:42→12:15)
[2016-12-21 06:43] LABS: INR 1.9 (0.9-1.1); PROTHROMBIN TIME 20.2 SEC (9.30-11.50)
[2016-12-21 08:00] VITALS: BP 113/77
[2016-12-21] MEDS: Losartan 25mg tab ORAL SCH (08:40)
[2016-12-21] MEDS: Furosemide 40mg tab ORAL SCH (08:40)
[2016-12-21] MEDS: Carvedilol 25mg Tab ORAL SCH (08:44)
[2016-12-21] MEDS: Allopurinol 100mg Tab ORAL SCH (08:49)
--- NOTE | 2016-12-21 10:14 | Infectious Diseases Prog Note ---
Assessment/Plan Assessment/Plan A; UTI Systolic CHF, EF=30-35% CKD, acute renal failure DM type 2 Morbid obesity P: continue Rocephin in hospital agree with discharge Subjective ROS Limited/Unobtainable: No Constitutional: Reports: no symptoms Respiratory: Reports: no symptoms Cardiovascular: Reports: dyspnea on exertion Gastrointestinal/Abdominal: Reports: no symptoms Allergies: Coded Allergies: No Known Allergies (Unverified , 12/16/16) Objective Vital Signs Last 24 Hour Vital Signs Date Time Temp Pulse Resp B/P Pulse Ox O2 Delivery O2 Flow Rate FiO2 12/21/16 08:44 71 113/77 12/21/16 08:40 113/77 12/21/16 08:00 97.5 71 19 113/77 98 Room Air 12/21/16 04:00 97.3 72 22 107/71 100 Room Air 12/21/16 04:00 111 12/21/16 00:00 72 12/21/16 00:00 97.6 88 20 112/65 98 Room Air 12/20/16 21:13 77 108/89 12/20/16 20:00 79 12/20/16 20:00 97.7 77 20 108/89 99 Room Air 12/20/16 16:25 70 12/20/16 16:12 97.2 75 18 104/68 98 Room Air 12/20/16 12:01 92 12/20/16 11:47 97.7 70 18 121/75 100 Room Air Height (Feet): 5 Height (Inches): 11.00 Weight (Pounds): 331 General Appearance: no acute distress HEENT: mucous membranes moist Respiratory/Chest: lungs clear Cardiovascular: normal rate Abdomen: soft, non tender Extremities: other - edema of legs Neurologic/Psychiatric: alert, oriented x 3, responsive Laboratory Tests Test 12/21/16 06:30 Prothrombin Time 20.2 SEC (9.30-11.50) H Prothromb Time International Ratio 1.9 (0.9-1.1) H Current Medications Medications (Trade) Dose Ordered Sig/Jordan Route PRN Reason Start Time Stop Time Status Last Admin Dose Admin Allopurinol 100 mg 100 mg DAILY ORAL 12/16/16 21:00 01/15/17 20:59 12/21/16 08:49 Carvedilol (Coreg) 25 mg EVERY 12 HOURS ORAL 12/16/16 21:00 7/17/17 20:59 12/21/16 08:44 Ceftriaxone Sodium/Dextrose (Rocephin/D5W) 55 ml @ 110 mls/hr Q24H IVPB 12/17/16 16:00 12/24/16 15:59 12/20/16 16:34 Dextrose (Dextrose 50%) STAT PRN IV Hypoglycemia 12/16/16 18:15 01/15/17 18:14 Furosemide (Lasix) 40 mg DAILY ORAL 12/20/16 09:00 01/19/17 08:59 12/21/16 08:40 Insulin Aspart (NovoLOG) BEFORE MEALS AND HS SUBQ 12/17/16 22:30 01/16/17 22:29 12/21/16 06:42 Losartan Potassium (Cozaar) 25 mg DAILY ORAL 12/17/16 09:00 01/16/17 08:59 12/21/16 08:40 Magnesium Hydroxide (Mom) 30 ml HSPRN PRN ORAL Constipation 12/16/16 18:15 01/15/17 18:14 12/19/16 12:14 Pravastatin Sodium (Pravachol) 10 mg BEDTIME ORAL 12/16/16 21:00 01/15/17 20:59 12/20/16 21:13 Ranitidine HCl (Zantac) 150 mg Q12HR ORAL 12/16/16 21:00 01/15/17 20:59 12/21/16 08:39 Sorbitol (Sorbitol) 30 ml TIDPRN PRN ORAL Constipation 12/18/16 12:30 01/17/17 12:29 Warfarin Sodium (Coumadin per pharmacy) 1 ea DAILY PRN MISC Per rx protocol 12/16/16 18:15 01/15/17 18:14 Warfarin Sodium (Coumadin) 7.5 mg COUMADIN ORAL 12/21/16 17:00 12/26/16 16:59 Zolpidem Tartrate (Ambien) 5 mg DAILYPRN PRN ORAL Insomnia 12/16/16 18:15 01/15/17 18:14 NINO MUNIZ Dec 21, 2016 10:14
--- NOTE | 2016-12-21 11:54 | Consultation ---
Consult Note Assessment/Plan Dc dictated # [id number] CHANDA MUNIZ Dec 21, 2016 11:54
[2016-12-21 12:38] VITALS: BP 107/68
--- NOTE | 2016-12-21 13:07 | Physician Query ---
PLEASE COMPLETE THE DOCUMENT BEFORE SIGNING Dear Dr. Justen Singh Date: November Product Finisher/CDS Name: BRANDON Herman Product Finisher / CDS Exercise your independent professional judgment when responding to query. Question asked do not imply a particular answer is desired/expected Clinical Documentation States: "Acute Renal Failure/CKD" documented in the consultation notes of Dr. Graeme Singh. Clinical Findings Show: Creatinine 2.6, 2.5,2.4 BUN _70,75,75 Please Clarify the type of renal failure below: Etiology [] ARF w/ Tubular Necrosis [] ARF w/ Cortical Necrosis [] ARF w/ Medullary Necrosis [] Acute Renal Failure (unspecified) [] Other: If Chronic, please specify the stage: [] CKD Stage 1 [] CKD Stage 2 [] CKD Stage 3 [] CKD Stage 4 [] CKD Stage 5 [] ESRD [] Not applicable Condition Present on Admission: [] Yes [] No []Clinically Undeterminable Please also document in your Progress Notes and/or Discharge Summary and indicate if the condition was present on admission. Justen Singh MD Date/Time [facility]
[2016-12-21] MEDS ORDERED: TORSEMIDE10 MG PO (13:18)
[2016-12-21] MEDS ORDERED: TORSEMIDE100 MG PO (13:39)
[2016-12-21] MEDS ORDERED: Tubing IV Secondary IV ONE (14:49)
[2016-12-21] MEDS ORDERED: NS 275ml ONE (14:49)
[2016-12-21] MEDS ORDERED: Warfarin Sodium 7.5mg ORAL SCH (17:00)
--- NOTE | 2016-12-21 17:45 | Discharge Summary ---
DATE OF ADMISSION: 12/16/2016 DATE OF DISCHARGE: 12/21/2016 CHIEF COMPLAINT: Shakiness and shortness of breath after having high blood pressure at sister's home. HISTORY OF PRESENT ILLNESS: This is a 66-year-old, male with history of congestive heart failure and history of biventricular defibrillator who came to the emergency room for feeling shaky. The patient was diagnosed with CHF exacerbation as well as urinary tract infection. The patient was found to also have renal failure and possibility of chronic kidney disease. HOSPITAL COURSE: The patient was diuresed with IV Lasix. The patient was followed by Dr. Ortega for Cardiology and Dr. Graeme Singh for ID. His urine culture came back positive for E. coli, which was sensitive to all antibiotics. The patient was maintained on IV ceftriaxone until the patient was discharged. His symptoms improved and he was finally discharged home in stable condition. The patient is from [place] and is supposed to go back to [place] by the weekend to follow up with his own primary medical doctor. DISCHARGE DIAGNOSES: 1. Congestive heart failure exacerbation. 2. Urinary tract infection. 3. History of diabetes. 4. History of hypertension. MEDICATIONS: Please refer to discharge medication list. Justen Singh M.D. DR: YANDY JOB#: [id number] CC:
== END 2016-12-21 14:50 | disposition home or self-care (01) | DRG 291 ==
LOC: EMR 14:40 → 2E 17:27 → EDBEDREQ 19:39
DX: I13.0 Hypertensive heart and chronic kidney disease with heart failure and stage 1 through stage 4 chronic kidney disease, or unspecified chronic kidney disease (principal); I50.23 Acute on chronic systolic (congestive) heart failure; N17.9 Acute kidney failure, unspecified; E11.22 Type 2 diabetes mellitus with diabetic chronic kidney disease; N39.0 Urinary tract infection, site not specified; I42.9 Cardiomyopathy, unspecified; Z68.41 Body mass index [BMI] 40.0-44.9, adult; Z68.42 Body mass index [BMI] 45.0-49.9, adult; E66.01 Morbid (severe) obesity due to excess calories; N18.9 Chronic kidney disease, unspecified; K59.00 Constipation, unspecified; I48.2 Chronic atrial fibrillation; B96.20 Unspecified Escherichia coli [E. coli] as the cause of diseases classified elsewhere; Z79.84 Long term (current) use of oral hypoglycemic drugs; Z79.01 Long term (current) use of anticoagulants; Z86.73 Personal history of transient ischemic attack (TIA), and cerebral infarction without residual deficits; Z95.810 Presence of automatic (implantable) cardiac defibrillator
CPT/HCPCS: 36415; 71010; 76775; 80048; 80053; 80061; 81003; 82550; 82553; 82962; 83036; 83605; 83690; 83735; 83880; 84443; 84484; 85025; 85610; 87040; 87086; 87181; 93005; 93306; 93970; J1815; J8499